=== PATIENT | female | born 1960 | race Caucasian/White ===

== ENCOUNTER 2018-08-30 08:34 | Emergency (ER) | payer BC ==
[~2018-08-30] VITALS: Ht 160 cm; Wt 67.8 kg
[2018-08-30 08:41] VITALS: Ht 160 cm; Wt 67.8 kg
[2018-08-30 11:11] VITALS: BP 128/66
== END 2018-08-30 11:11 | disposition home or self-care (01) ==
LOC: ED 08:34
DX: J45.901 Unspecified asthma with (acute) exacerbation (principal)
CPT/HCPCS: J2930; J7030; J7620; Q0092